=== PATIENT | female | born 1950 | race Caucasian/White ===

== ENCOUNTER 2019-02-14 10:56 | Outpatient (CLI) | payer BC, SELFPAY ==
--- NOTE | 2019-02-14 10:55 | DI.RAD_ITS ---
EXAM: XR SHOULDER RT COMPLETE 2+V INDICATION: shoulder injury. COMPARISON: No exams were available for comparison TECHNIQUE: 2D digital imaging was performed. FINDINGS: No acute fracture or dislocation is seen. No suspicious lytic or sclerotic lesion is identified. Th e articular surfaces appear well maintained. The soft tissues are unremarkable. IMPRESSION: No acute abnormality.
== END 2019-02-14 11:16 ==
PROVIDERS: PCP Naturopath; Visit Provider Student in an Organized Health Care Education/Training Program
DX: M25.511 Pain in right shoulder (principal); S49.91XA Unspecified injury of right shoulder and upper arm, initial encounter
CPT/HCPCS: 73030

== ENCOUNTER 2019-02-22 01:58 | Outpatient (CLI) | payer BC, SELFPAY ==
--- NOTE | 2019-02-22 08:20 | DI.MRI_ITS ---
EXAM: MR UPPER JOINT RT WO CLINICAL HISTORY: BURSITIS RT SHOULDER, ROTATOR CUFF TEAR,IMPINGEMENT SYNDROME,TENDONITIS. TECHNIQUE: Multiplanar multisequence MRI was performed.MR of the shoulder was performed according to the usual protocol. COMPARISON: No exams were available for comparison FINDINGS: There is moderate hypertrophic degenerative change of the acromioclavicular joint. Minimal marginal osteophyte formation noted at the glenoid and humeral head. Glenoid labrum grossly intact as visualized. Small joint effusion, small quantity of fluid in the subacromial bursa. Biceps tendon and anchor appear intact. There is abnormal signal in the supraspinatus tendon consistent with tendinosis. Probable small part ial thickness tear noted on the superior surface of the tendon. Infraspinatus and subscapularis unre markable. Mildly increased signal in rotator interval may represent rotator interval strain, no disc rete tear seen. No full-thickness rotator cuff tear seen. IMPRESSION: Mild degenerative changes, supraspinatus tendinosis and probable small partial thickness non retracte d supraspinatus tendon tear at the level of the acromion. No other significant findings.
== END 2019-02-22 02:18 ==
PROVIDERS: PCP Naturopath; Visit Provider Student in an Organized Health Care Education/Training Program
DX: M75.01 Adhesive capsulitis of right shoulder (principal); M75.101 Unspecified rotator cuff tear or rupture of right shoulder, not specified as traumatic; M75.21 Bicipital tendinitis, right shoulder; M75.41 Impingement syndrome of right shoulder; M75.51 Bursitis of right shoulder; M19.011 Primary osteoarthritis, right shoulder
CPT/HCPCS: 73221

== ENCOUNTER 2021-05-12 02:05 | Outpatient (CLI) | payer MEDICARE, SELFPAY ==
--- NOTE | 2021-05-12 06:30 | DI.MAMMO_ITS ---
Exam(s) MAMMO SCREENING EXAM: MAMMO SCREENING CLINICAL HISTORY: screening,Z12.39. TECHNIQUE: Bilateral full field digital CC and MLO mammographic images were obtained with 3D tomosyn thesis and utilizing computer aided detection (CAD). COMPARISON: Prior mammograms were reviewed, the most recent being October 2014. FINDINGS: There has been no significant change in appearance and distribution of the fibroglandular tissue. No new spiculated masses. No new right breast findings. In the left breast there is a group of microcalcifications in the upper outer quadrant located approx imately 8 centimeters in from the nipple, not previously present on the most recent study (2014). There is no significant architectural distortion nor skin thickening-retraction. IMPRESSION: No radiographic evidence of malignancy in the right breast. Left breast microcalcification group now evident, not previously present in 2015. Spot Mag view segundo mmended. BI-RADS Category 0 - Assessment Incomplete: Need additional imaging evaluation Breast Density - Category B - Scattered areas of fibroglandular density Breast density Category C or D implies that the patient has dense breast tissue. Dense breast tissue can make it harder to find cancer on a mammogram. Dense breast tissue is also associated with an incr eased risk of breast cancer. This information about the result of the mammogram report was provided to the patient to raise their awareness. Use this report when you speak with the patient about their risks for breast cancer, which includes their family history. At that time, you may recommend additional screening tests (Ultrasoun d or MRI) as these tests may add significant information. A negative radiographic report should not delay biopsy if a dominant or clinically suspicious mass is present. Up to ten percent of cancers are not identified on mammography. A negative report may reinforce clinical impression. Adenosis and dense breasts may obscure an underlying neoplasm. False positive reports average 6 to 10%. Patient will receive a letter notifying them of these results.
--- NOTE | 2021-05-12 07:31 | DI.RAD_ITS ---
Exam(s) XR HIP RT COMPLETE AP PELVIS EXAM: XR HIP RT COMPLETE AP PELVIS CLINICAL HISTORY: r/o fx vs osteoarthritis,STRAIN RT HIP, RT HIP PAIN, S76.011A. TECHNIQUE: 2D digital imaging was performed. FINDINGS: No evidence of pelvic nor hip fracture. No degenerative changes in the hips. Sacroiliac joints appe ar unremarkable. No osseous lesions. IMPRESSION: DATA REPOSITORY: RADIATION DOSE DELIVERED:
== END 2021-05-12 02:25 ==
PROVIDERS: PCP Nurse Practitioner; Visit Provider Nurse Practitioner
DX: Z12.31 Encounter for screening mammogram for malignant neoplasm of breast (principal); R92.8 Other abnormal and inconclusive findings on diagnostic imaging of breast; M25.551 Pain in right hip; S76.011A Strain of muscle, fascia and tendon of right hip, initial encounter; X58.XXXA Exposure to other specified factors, initial encounter
CPT/HCPCS: 77063; 77067; 73502

== ENCOUNTER 2021-05-12 03:33 | Outpatient (CLI) | payer MEDICARE, SELFPAY ==
[2021-05-12 10:29] LABS: Hemoglobin A1C 5.7 % (<5.7)
[2021-05-12 10:55] LABS: Calculated LDL 146 mg/dL (<100); Cholesterol 239 mg/dL (<200); HDL Cholesterol 67 mg/dL (40-60); TSH (W/Ref FT4) 1.18 uIU/mL (0.36-3.74); Triglyceride 130 mg/dL (<150)
== END 2021-05-12 03:34 | disposition home or self-care (01) ==
LOC: LBO 03:33
PROVIDERS: PCP Nurse Practitioner; Visit Provider Nurse Practitioner
DX: Z13.6 Encounter for screening for cardiovascular disorders (principal); G47.00 Insomnia, unspecified; R73.09 Other abnormal glucose
CPT/HCPCS: 36415; 80061; 83036; 84443

== ENCOUNTER 2021-05-22 01:57 | Outpatient (CLI) | payer MEDICARE, SELFPAY ==
--- NOTE | 2021-05-22 10:20 | DI.MAMMO_ITS ---
Exam(s) MAMMO SCREEN CALL BACK UNI EXAM: MAMMO SCREEN CALL BACK UNI CLINICAL HISTORY: F/U MAMMO, UOQ MICROCALCIFICATIONS, TECHNIQUE: Mammograms were interpreted according to the usual protocol including computer analysis w [facility] CAD system, tomosynthesis and C-view imaging. COMPARISON: FINDINGS: Magnification spot compression views were obtained to evaluate microcalcifications identified in the upper outer quadrant of the left breast on recent mammogram. Additional views confirm these are smal l benign-appearing calcifications, review of prior examinations show these to have been present since prior mammography of 2011 through 2015 period. There is no associated mass. IMPRESSION: No specific evidence of malignancy at this time. I would suggest that routine screening examinations resume with bilateral mammogram in 12 months. BI-RADS Category 2 - Benign Findings Breast Density - Category C - Heterogeneously dense
== END 2021-05-22 02:17 ==
PROVIDERS: PCP Nurse Practitioner; Visit Provider Nurse Practitioner
DX: Z12.31 Encounter for screening mammogram for malignant neoplasm of breast (principal); R92.8 Other abnormal and inconclusive findings on diagnostic imaging of breast
CPT/HCPCS: 77063; 77067

== ENCOUNTER 2021-06-06 00:44 | Outpatient (CLI) | payer MEDICARE, SELFPAY ==
--- NOTE | 2021-06-06 07:00 | DI.DEXA_ITS ---
Exam(s) XR DEXA BONE DENSITY W/WO MELISSA EXAM: XR DEXA BONE DENSITY W/WO MELISSA CLINICAL HISTORY: screening for osteoporosis in postmenopausal woman,z78.0 TECHNIQUE: COMPARISON: Comparison examination is 07/08/2015. FINDINGS: Lateral Spine Image: Unremarkable. No compression deformities identified. Left hip: Total T-Score: -0.7. This compares to -0.2 on the prior examination. Total Z-Score: 0.9 T- and Z-scores: Within normal limits. Lumbar Spine: Total T-Score: -0.7. This compares to 0.0 on the prior examination. Total Z-Score: 1.5 T- and Z-scores: Within normal limits. IMPRESSION: No evidence of osteoporosis in the left hip or lumbar spine.
== END 2021-06-06 01:04 ==
PROVIDERS: PCP Nurse Practitioner; Visit Provider Nurse Practitioner
DX: Z78.0 Asymptomatic menopausal state (principal); Z13.820 Encounter for screening for osteoporosis
CPT/HCPCS: 77080

== ENCOUNTER → 2021-11-06 11:06 | Outpatient (BNVA) | payer MEDICARE, SELFPAY | PROVIDERS: PCP Nurse Practitioner; Referring Provider Nurse Practitioner; Visit Provider Student in an Organized Health Care Education/Training Program | DX: M25.551 Pain in right hip (principal); M76.891 Other specified enthesopathies of right lower limb, excluding foot | CPT/HCPCS: 99213 ==

== ENCOUNTER → 2021-12-01 01:30 | Outpatient (CLI) | payer MEDICARE, SELFPAY ==
--- NOTE | 2021-12-01 07:30 | DI.MRI_ITS ---
Exam(s) MR LOWER JOINT RT WO EXAM: MR LOWER JOINT RT WO CLINICAL HISTORY: PAIN, TENDINITIS RT HIP ABDUCTORS,M76.891 TECHNIQUE: Multiplanar multisequence MRI of the knee was performed. COMPARISON: CR XR HIP RT COMPLETE AP PELVIS from 05/12/2021 FINDINGS: MARROW:No evidence of stress fracture or avascular necrosis. ARTICULATION: No evidence of hip joint effusion. There is significant degenerative change in the right hip. Small marginal osteophytes are noted on t he femoral head. Multifocal cartilage loss. There is a degenerative subarticular cyst in the superi or acetabulum measuring 1.8 cm wide by 0.5 cm deep by 0.9 cm AP. There is significant bone edema in the superior acetabulum around this finding. There are a few tiny subarticular cysts in the femoral head. No evidence of prominent bony excrescence on the anterior aspect of the femoral head-neck junction to suggest the presence of CAM-type ORALIA. LABRUM: There is mild intrasubstance signal but no prominent tearing of the labrum evident. No evide nce of paralabral cyst. SOFT TISSUES: There is increased signal seen in the soft tissues immediately lateral to the greater t rochanter. Consistent with gluteus medius tendon partial tearing. No prominent fluid in the trochan teric bursa. No evidence of iliopsoas bursitis. Minimal increased signal at the hamstrings tendon. No abnormal signal in the adjacent ischial tubero sity. MUSCLES: No evidence of atrophy. No abnormal intramuscular signal. OTHER: There is an abnormal non septated cystic structure in the left adnexal region measuring 6.8 cm by 3 cm by 3.8 cm. Probable origin is the left ovary. No similar finding in the right adnexa. IMPRESSION: 1. Moderate degenerative changes in the right hip joint. There is also prominent/disproportion amoun t of bone edema in the acetabulum around a degenerative subarticular cyst. No fractures evident 2. No evidence of labral tear. No paralabral cyst. 3. Increased signal consistent with tendinitis and partial tearing of the gluteus medius tendon later al to the greater trochanter. No abnormal intraosseous signal evident within the greater trochanter itself. 4. Incidental note of a left adnexal abnormal unilocular cyst measuring 6.8 x 3.0 x 3.8 cm. Probable origin is the left ovary. Appropriate close follow-up recommended. DATA REPOSITORY:
== END ==
PROVIDERS: PCP Nurse Practitioner; Visit Provider Student in an Organized Health Care Education/Training Program
DX: M76.891 Other specified enthesopathies of right lower limb, excluding foot (principal); M16.11 Unilateral primary osteoarthritis, right hip; S76.011A Strain of muscle, fascia and tendon of right hip, initial encounter; X58.XXXA Exposure to other specified factors, initial encounter
CPT/HCPCS: 73721

== ENCOUNTER → 2023-06-02 01:24 | Outpatient (CLI) | payer MEDICARE, SELFPAY ==
--- NOTE | 2023-06-02 07:00 | DI.MAMMO_ITS ---
Exam(s) MAMMO SCREENING EXAM: MAMMO SCREENING CLINICAL HISTORY: screening,Z12.39 TECHNIQUE: Mammograms were interpreted according to the usual protocol including computer analysis w [email or web address] CAD system, tomosynthesis and C-view imaging. COMPARISON: 2013 through 2021 FINDINGS: The breasts are composed of scattered fibroglandular densities, Breast Density category B. No suspicious masses or suspicious microcalcifications are seen. No skin thickening or abnormal axillary lymph nodes are seen. There has been no significant change from prior exams. IMPRESSION: BI-RADS Category 1, Negative mammogram Yearly screening mammography is recommended. Breast Density - Category B, scattered fibroglandular densities. A negative radiographic report should not delay biopsy if a dominant or clinically suspicious mass is present. Up to ten percent of cancers are not identified on mammography. A negative report may reinforce clinical impression. Adenosis and dense breasts may obscure an underlying neoplasm. False positive reports average 6 to 10%. Patient will receive a letter notifying them of these results.
== END ==
PROVIDERS: PCP Nurse Practitioner Family; Visit Provider Nurse Practitioner Family
DX: Z12.31 Encounter for screening mammogram for malignant neoplasm of breast (principal)
CPT/HCPCS: 77063; 77067

== ENCOUNTER 2023-07-26 03:58 | Outpatient (CLI) | payer MEDICARE, SELFPAY ==
[2023-07-26 08:04] LABS: Hemoglobin A1C 5.9 % (<5.7)
[2023-07-26 08:49] LABS: Anion Gap 11.5 mmol/L (3-11); BUN 11 mg/dL (7-18); CO2 27.5 mmol/L (21.0-32.0); Calcium 9.2 mg/dL (8.5-10.1); Calculated LDL 156 mg/dL (<100); Chloride 100 mmol/L (98-107); Cholesterol 242 mg/dL (<200); Estimated GFR 59.49 (mL/min/1.73m2); Glucose 98 mg/dL (74-106); HDL Cholesterol 67 mg/dL (40-60); Potassium 3.8 mmol/L (3.5-5.1); Sodium 139 mmol/L (136-145); TSH (W/Ref FT4) 1.92 uIU/mL (0.36-3.74); Triglyceride 96 mg/dL (<150)
== END 2023-07-26 03:59 | disposition home or self-care (01) ==
LOC: LBO 03:58
PROVIDERS: PCP Nurse Practitioner Family; Visit Provider Nurse Practitioner Family
DX: Z00.00 Encounter for general adult medical examination without abnormal findings (principal); E03.9 Hypothyroidism, unspecified; R03.0 Elevated blood-pressure reading, without diagnosis of hypertension; R73.03 Prediabetes; E78.5 Hyperlipidemia, unspecified
CPT/HCPCS: 36415; 80048; 80061; 83036; 84443

== ENCOUNTER 2024-11-15 04:06 | Outpatient (CLI) | payer MEDICARE, SELFPAY ==
[2024-11-15 12:45] LABS: ALT 34 U/L (14-59); AST 22 U/L (15-37); Albumin 3.9 g/dL (3.4-5.0); Alkaline Phosphatase 66 U/L (46-116); Anion Gap 8.2 mmol/L (3-11); BUN 12 mg/dL (7-18); Bilirubin, Total 0.6 mg/dL (0.2-1.0); CO2 27.8 mmol/L (21.0-32.0); Calcium 9.2 mg/dL (8.5-10.1); Calculated LDL 146 mg/dL (<100); Chloride 97 mmol/L (98-107); Cholesterol 233 mg/dL (<200); Estimated GFR 67.08 (mL/min/1.73m2); Glucose 99 mg/dL (74-106); HDL Cholesterol 68 mg/dL (>or=50); Potassium 4.2 mmol/L (3.5-5.1); Sodium 133 mmol/L (136-145); TSH (W/Ref FT4) 1.80 uIU/mL (0.36-3.74); Total Protein 7.1 g/dL (6.4-8.2); Triglyceride 96 mg/dL (<150)
[2024-11-15 12:58] LABS: Hemoglobin A1C 5.8 % (<5.7)
== END 2024-11-15 04:07 | disposition home or self-care (01) ==
LOC: LOS 04:06
PROVIDERS: PCP Nurse Practitioner Family; Visit Provider Nurse Practitioner Family
DX: R03.0 Elevated blood-pressure reading, without diagnosis of hypertension (principal); I73.00 Raynaud's syndrome without gangrene; E78.5 Hyperlipidemia, unspecified; R73.03 Prediabetes; E03.9 Hypothyroidism, unspecified; G47.00 Insomnia, unspecified
CPT/HCPCS: 36415; 80053; 80061; 83036; 84443